=== PATIENT | female | born 1950 ===

== ENCOUNTER 2021-10-14 12:20 | Outpatient (CLI) | payer OTHER | END 2021-10-14 12:23 | disposition home or self-care (01) | LOC: SONOGRAMA 12:20 | PROVIDERS: ATTEND Orthopaedic Surgery Orthopaedic Surgery of the Spine | DX: D34 Benign neoplasm of thyroid gland (principal); E04.8 Other specified nontoxic goiter; E07.89 Other specified disorders of thyroid ==